=== PATIENT | female | born 1945 | race Caucasian/White ===

== ENCOUNTER → 2017-04-21 | Outpatient (CLI) | payer BC ==
[~2017-04-21] MED LIST: ASPI81TA28 PO; CHOL100010 PO; CLB/200 PO; CYAN10004 PO; ESCI10TA17 PO; FRS/40 PO; HYDR-5688 PO; LISI-461 PO
== END | disposition home or self-care (01) ==
LOC: C.PATHSPEC 11:09
PROVIDERS: ATTEND Urology
DX: R31.29 Other microscopic hematuria (principal); R82.99 Other abnormal findings in urine